=== PATIENT | male | born 1940 | race Caucasian/White ===

== ENCOUNTER 2021-04-29 18:36 | Emergency (ER) | payer OTHER, MEDICARE ==
--- OUTSIDE RECORDS SUMMARY | 2021-04-29 18:39 | XMS REPORT | Continuity of Care Document ---
:1940 Author Organization [facility] t Address [address] [place] [address] Care Team Providers Name Role Phone Gardenia Attending Clinician Unavailable Raslan Admitting Clinician Unavailable Physician, Primary or Family Admitting Clinician Unavailabl e Payers Payer Name Policy Type Policy Number Effective Date Expiration Date S ource Problems This patient has no known problems. Allergies, Adverse Reactions, Alerts Allergy Allergy Status Severity Reaction(s) Onset Inactive Treating Comm ents Source Name Type Date Date Clinician [place] DA Active [place] [facility] ins 04-09 Clear 00:00: [address] [place] [address] Medications This patient has no known medications. Procedures This patient has no known procedures. Encounters Start End Encounter Admission Attending Care Care Encounter Source Date/Time Date/Time Type Type Clinicians Facility Department ID 2021-04-14 2021-04-14 Inpatient RODERICK Melara INTE.02 [id number] [facility] 14:04:00 19:30:00 Zaheer [id number] [facility] 2021-04-09 2021-04-09 Outpatient EFRAIN MelaraBETI 3DAY [id number] [facility] 09:00:00 23:00:00 Zaheer [id number] [facility] Results Test Description Test Time Test Comments Results Result [facility] e Comments - CT ABD PELVIS 2021-04-15 W/CONT 08:34:00 [facility] [place]: TYREE LUJAN : 1940 Sex: M Name: TYREE LUJAN [facility] Tully : 1940 Age/S: 80 / M [address] [place] [address] Blvd Unit #: [id number] Loc: [place] [address] Phys: Luke Ayala [employer] Acct: [id number] Dis Date: 04/14/2021 Status: DIS IN PHONE #: [phone] Exam Date: 04/14/2021 165 FAX #: [phone] Reason: PRE WATCHMAN ACCESS EVALUATION EXAMS: CPT CODE: [id number] CT ABD PELVIS W/CONT 43224 EXAM: CT ABDOMEN AND PELVIS WITH CONTRAST CHEST CT ANGIOGRAM WITH IV CONTRAST (PULMONARY VEIN MAPPING) DATE: 04/14/2021 2:42 PM : 1940; Age: 80 years y/o Male INDICATION: A. Fib, PRE WATCHMAN EVALUATION COMPARISON: None. TECHNIQUE: Volumetric CT of the abdomen and pelvis is acquired following the intravenous administration of contrast. Axial, coronal and sagittal images are provided. IV contrast: 100 mL Isovue Enteric contrast: None. DLP: 3673 mGy-cm CT imaging performed at this location utilizes radiation dose optimization techniques which include one or more of the following: -Automated exposure control -Adjustment of the mA and/or kV according to patient size -Use of iterative reconstruction technique Technique: Contiguous 0.5 mm axial images of the chest were obtained with IV contrast using the CT angiogram protocol with a 64-slice multidetector scanner. Images were obtained from the thoracic inlet through below the level of the adrenal glands. Particular attention was given to the left atrium and pulmonary veins. The acquired data was used to create multiplanar reformats and 3D volume rendering reconstructions with the use of the work station as per CT Angiogram protocol. Pulmonary vein measurements (measurement plane obtained 5 mm distal to vessel ostia): FINDINGS: Right superior pulmonary vein (RSPV): 21 mm. Right inferior pulmonary vein (RIPV): 14 mm. Left superior pulmonary vein (LSPV): 19 mm. Left inferior pulmonary vein (LIPV): 12 mm. Lower thorax: 2 cm noncalcified opacity is noted along the lateral right major fissure. Mild pulmonary emphysema with dependent atelectatic changes. Scattered bilateral calcified pleural plaques is PAGE 1 Signed Report (CONTINUED) Name: TYREE LUJAN [facility] : 1940 Age/S: 80 / M [address] [place] [address] Blvd Unit #: [id number] Loc: [place] [address] Phys: Luke Ayala [employer]IT[employer] Acct: [id number] Dis Date: 04/14/2021 Status: DIS IN PHONE #: [phone] Exam Date: 04/14/2021 1659 FAX #: [phone] Reason: PRE WATCHMAN ACCESS EVALUATION EXAMS: CPT CODE: [id number] CT ABD PELVIS W/CONT 31200 <Continued> seen, which may represent prior asbestos exposure. Trace bilateral pleural effusions. Elevated left hemidiaphragm is seen. Heart is borderline in size. Trace pericardial effusion. Mild coronary arteries calcification. Tortuous thoracic aorta is noted. Liver, gallbladder, adrenal glands, kidneys, spleen and pancreas: Prior cholecystectomy clips. Few simple cysts in the liver measuring up to 4.5 cm. Exophytic 3.1 cm lesion is noted involving the posterior right kidney lower pole. No hydronephrosis. Adrenal glands are not well seen. Multiple clips are noted around the GE junction causing streak artifacts, limiting evaluation of the pancreas. Spleen is grossly unremarkable. Visualized Gastrointestinal tract: Stomach is collapsed limiting its evaluation. No bowel obstruction. Mild to moderate sigmoid colonic diverticulosis. Small right inguinal hernia containing small bowel loop is seen without obstruction. Elevated left hemidiaphragm is seen with jejunal loops extending into the thorax through posterior diaphragmatic hernia. Peritoneum, mesentery, retroperitoneum and soft tissues: Atherosclerotic changes are seen involving the aorta. Borderline prostatomegaly. Bladder is not well distended limiting its evaluation. No lymphadenopathy. Bones: Left hip arthroplasty with streak artifacts is seen. Moderate right hip degenerative changes. Severe S-shaped scoliotic curvature of the thoracal lumbar spine. Spine degenerative changes. IMPRESSION: 1. Pulmonary venous measurements as above. 2. No acute intra-abdominal process. 3. 3.1 cm low-attenuation lesion in the posterior right kidney lower pole. This may represent complex or complicated cyst however ultrasound follow-up is recommended to ensure benign cystic nature and exclude other pathology. 4. Borderline cardiomegaly with coronary artery disease and trace bilateral pleural effusions. 5. Severe scoliotic deformity with left diaphragmatic hernia. Other nonemergent findings as above. 6. 2 cm noncalcified opacity is noted along the lateral right major fissure. This may represent scarring however underlying lung lesion PAGE 2 Signed Report (CONTINUED) Name: TYREE LUJAN [facility] : 1940 Age/S: 80 / M [address] [place] [address] Unit #: [id number] Loc: [place] [address] Phys: Luke Ayala Acct: [id number] Dis Date: 04/14/2021 Status: DIS IN PHONE #: [phone] Exam Date: 04/14/2021 1659 FAX #: [phone] Reason: PRE WATCHMAN ACCESS EVALUATION EXAMS: CPT CODE: [id number] CT ABD PELVIS W/CONT 81465 <Continued> cannot be entirely excluded. 3 months follow-up chest CT without contrast is recommended as per guidelines. FOR INTERNAL CODING PURPOSES ONLY RESULT CODE: NOD at 0834 Reported and signed by: Jesse Crespo D.O. CC: Luke Varner MD Technologist:Clay Ann RT(R)(CT) CTDI: DLP: Trnscb Date/Time: 04/15/2021 (0834) [email or web address] Orig Print D/T: S: 04/15/2021 (0838) PAGE 3 Signed Report - CT HEART W CN 2021-04-15 [facility] 08:34:00 [facility] REJI LOPEZName: TYREE LUJAN : 1940 Sex: M Name: TYREE LUJAN [facility] Tully : 1940 Age/S: 80 / M [address] [place] [address] Unit #: [id number] Loc: [place] [address] Phys: DannfransiscoLuke quevedo [facility] Acct: [id number] Dis Date: 04/14/2021 Status: DIS IN PHONE #: [phone] Exam Date: 04/14/2021 1700 FAX #: [phone] Reason: PRE WATCHMAN EVALUATION EXAMS: CPT CODE: [id number] CT HEART W CN [facility] [address] EXAM: CT ABDOMEN AND PELVIS WITH CONTRAST CHEST CT ANGIOGRAM WITH IV CONTRAST (PULMONARY VEIN MAPPING) DATE: 04/14/2021 2:42 PM : 1940; Age: 80 years y/o Male INDICATION: A. Fib, PRE WATCHMAN EVALUATION COMPARISON: None. TECHNIQUE: Volumetric CT of the abdomen and pelvis is acquired following the intravenous administration of contrast. Axial, coronal and sagittal images are provided. IV contrast: 100 mL Isovue Enteric contrast: None. DLP: 3673 mGy-cm CT imaging performed at this location utilizes radiation dose optimization techniques which include one or more of the following: -Automated exposure control -Adjustment of the mA and/or kV according to patient size -Use of iterative reconstruction technique Technique: Contiguous 0.5 mm axial images of the chest were obtained with IV contrast using the CT angiogram protocol with a 64-slice multidetector scanner. Images were obtained from the thoracic inlet through below the level of the adrenal glands. Particular attention was given to the left atrium and pulmonary veins. The acquired data was used to create multiplanar reformats and 3D volume rendering reconstructions with the use of the work station as per CT Angiogram protocol. Pulmonary vein measurements (measurement plane obtained 5 mm distal to vessel ostia): FINDINGS: Right superior pulmonary vein (RSPV): 21 mm. Right inferior pulmonary vein (RIPV): 14 mm. Left superior pulmonary vein (LSPV): 19 mm. Left inferior pulmonary vein (LIPV): 12 mm. Lower thorax: 2 cm noncalcified opacity is noted along the lateral right major fissure. Mild pulmonary emphysema with dependent atelectatic changes. Scattered bilateral calcified pleural plaques is PAGE 1 Signed Report (CONTINUED) Name: TYREE LUJAN [facility] : 1940 Age/S: 80 / M [address] [place], [place] [address]vd Unit #: [id number] Loc: [place] [address] Phys: DannfransiscoemyHarjittobias [employer]IT[employer]ER Acct: [id number] Dis Date: 04/14/2021 Status: DIS IN PHONE #: [phone] Exam Date: 04/14/2021 1700 FAX #: [phone] Reason: PRE WATCHMAN EVALUATION EXAMS: CPT CODE: [id number] CT HEART W CN [facility] [address] <Continued> seen, which may represent prior asbestos exposure. Trace bilateral pleural effusions. Elevated left hemidiaphragm is seen. Heart is borderline in size. Trace pericardial effusion. Mild coronary arteries calcification. Tortuous thoracic aorta is noted. Liver, gallbladder, adrenal glands, kidneys, spleen and pancreas: Prior cholecystectomy clips. Few simple cysts in the liver measuring up to 4.5 cm. Exophytic 3.1 cm lesion is noted involving the posterior right kidney lower pole. No hydronephrosis. Adrenal glands are not well seen. Multiple clips are noted around the GE junction causing streak artifacts, limiting evaluation of the pancreas. Spleen is grossly unremarkable. Visualized Gastrointestinal tract: Stomach is collapsed limiting its evaluation. No bowel obstruction. Mild to moderate sigmoid colonic diverticulosis. Small right inguinal hernia containing small bowel loop is seen without obstruction. Elevated left hemidiaphragm is seen with jejunal loops extending into the thorax through posterior diaphragmatic hernia. Peritoneum, mesentery, retroperitoneum and soft tissues: Atherosclerotic changes are seen involving the aorta. Borderline prostatomegaly. Bladder is not well distended limiting its evaluation. No lymphadenopathy. Bones: Left hip arthroplasty with streak artifacts is seen. Moderate right hip degenerative changes. Severe S-shaped scoliotic curvature of the thoracal lumbar spine. Spine degenerative changes. IMPRESSION: 1. Pulmonary venous measurements as above. 2. No acute intra-abdominal process. 3. 3.1 cm low-attenuation lesion in the posterior right kidney lower pole. This may represent complex or complicated cyst however ultrasound follow-up is recommended to ensure benign cystic nature and exclude other pathology. 4. Borderline cardiomegaly with coronary artery disease and trace bilateral pleural effusions. 5. Severe scoliotic deformity with left diaphragmatic hernia. Other nonemergent findings as above. 6. 2 cm noncalcified opacity is noted along the lateral right major fissure. This may represent scarring however underlying lung lesion PAGE 2 Signed Report (CONTINUED) Name: TYREE LUJAN [facility] : 1940 Age/S: 80 / M [address] [place] [address] Unit #: [id number] Loc: [place] [address] Phys: Luke Ayala Acct: [id number] Dis Date: 04/14/2021 Status: DIS IN PHONE #: [phone] Exam Date: 04/14/2021 1700 FAX #: [phone] Reason: PRE WATCHMAN EVALUATION EXAMS: CPT CODE: [id number] CT HEART W CN [facility] [address] <Continued> cannot be entirely excluded. 3 months follow-up chest CT without contrast is recommended as per guidelines. FOR INTERNAL CODING PURPOSES ONLY RESULT CODE: NOD at 0834 Reported and signed by: Jesse Crespo D.O. CC: Luke Varner MD Technologist:Clay Ann, RT(R)(CT) CTDI: DLP: Trnscb Date/Time: 04/15/2021 (0834) [email or web address] Orig Print D/T: S: 04/15/2021 (5673) PAGE 3 Signed Report Novel Coronavirus 2019 Inhouse 2021-04-10 06:58:00 Test Item Value Reference Range Interpretation Comme nts Novel Coronavirus 2018 Negative Negative Posit nela results are indicative of the Inhouse (test code = presenc e [id number] RNA, clinical COVNONPUI) correlation wit h patient historyand other diagnosti c information is necessary to de terminepatient infection status. Positiv e results do not rule outbacterial in fection or co-infection with other viru ses. Negative results do not preclude SA RS-CoV-2 infection andshould not b e used as the sole basis for patient man agementdecisions. Negative result s must be combined with otherclinical o bservations, patient history, and ep idemiologicalinformation. Detection of SA RS-CoV-2 RNA may be affected bysamp le collection methods, storage conditi ons, and/or stageof infection. Lakisha l RNA mutations, vaccinations, a ntiviraltherapeutics, antibiotics, ch emotherapeutic orimmunosuppres elizabeth drugs have not been evaluated for e ffectson detection. Results are for the identification of SARS-CoV-2 RNA usingthe Taylor M2000 System under th e FDA Emergency UseAuthorizatio n. The testing is performed by david lirained in the procedures for the Kuaidi Dache M2000 moleculardiagno stic SARS-CoV-2 assay in vitro. PROTHROMBIN [id number] 12:59:00 Test Item Value Reference Range Interpretation Comments PROTHROMBIN TIME 15.2 SECONDS 9.3-12.9 H PATIENT (test code = PTP) INTERNATIONAL NORMAL 1.4 0.8-1.2 H TARGET RATIO (test code = INR BY IN DICATION INR) Indication INR1. Prophyl axis of venous thrombos is 2.0 - 3. 0 (orthopedic natalie gregorio), Prophylaxis of venous thrombos is (other than hig h-risk surgery), Keiry tment of Deep Vein Thrombosis/Pulm onary Embolism, Preve ntion of systemic emb olism - Tissue heart va lves, Acute Myocardia l Infarction (to prevent systemic embo lism), Valvular heart disease, Atri al Fibrillation, Bileaflet mecha nical valve in aortic position.2. Mec hanical prosthetic valv es (high risk), 2.5 - 3.5 Presence of Lupus Anticoagu lant or Antiphospholi pid Antibodies, Pre vention of systemic e mbolism - Acute Myocard ial Infarction (t o prevent recurre nt infarct). BASIC METABOLIC [id number] 12:56:00 Test Item Value Reference Range Interpretation Comments SODIUM (test code = NA) 141 mEq/L 134-147 N POTASSIUM (test code = 4.4 mEq/L 3.4-5.0 N K) CHLORIDE (test code = 107 mEq/L 100-108 N CL) CARBON DIOXIDE (test 32 mEq/l 21-33 N code = CO2) ANION GAP (test code = 6 0-20 N GAP) GLUCOSE (test code = 93 mg/dL 70-110 N GLU) BLOOD UREA NITROGEN 16 mg/dL 7-18 N (test code = BUN) GLOMERULAR FILTRATION 72.1 70-80 N Units of measure = RATE (test code = GFR) ml/mi n/1.73 m2 CREATININE (test code = 1.0 mg/dL 0.6-1.3 N CREAT) CALCIUM (test code = 8.8 mg/dL 8.0-10.5 N CA) [id number] 12:56:00 Test Item Value Reference Range Interpretation Comments PREALBUMIN (test code = PREALB) 21.1 mg/dL 16.0-40.0 N - XR CHEST 2 [id number] 12:49:00 [facility] 1940 Sex: M FAX: Zaheer Mcdermott MD [phone] [place]: [address]: PRE Name: TYREE LUJAN [facility] Tully : 1940 Age/S: 80/M [address] [place] [address] Blvd Unit #: [id number] Loc: [place] [address] Phys: Zaheer Varner MD Acct: [id number] Dis Date: Status: PRE SDC PHONE #: [phone] Exam Date: 04/09/2021 1154 FAX #: [phone] Reason: PREOP EXAMS: CPT CODE: [id number] XR CHEST 2 V 67234 EXAM: PA and lateral chest. EXAM DATE: April 09, 2021 CLINICAL HISTORY: PREOP COMPARISON: None The exam is limited by the marked kyphoscoliosis area Assessment of the heart is di fficult secondary to the marked kyphoscoliosis. It appears within normal limits. The right lung demonstrates surgical sutures in the upper lateral lung. No other significant findingis noted on the right. In the left lower to mid lung there is vague opacity. No pleural effusions are identified. Surgical clips are noted in the mid lower chest and upper abdomen region. Elevation of the left hemidiaphragm is noted. IMPRESSION: MarkedS-shaped kyphoscoliosis. Vague opacity left lower lung. With no comparison images it is difficult to determine if this may be nonacute. Early infectious/inflammatory changes cannot be excluded. at 1248 Reported and signed by: Janeth Tavares M.D. CC: Zaheer Varner MD Technologist: RT Isabela(Juarez)(Vivek) Trnscrd Date/Time/By: 04/09/2021 (7663) : By: Jenni Orig Print D/T: S: 04/09/2021 (2181) PAGE 1 Signed ReportCBC W/AUTO [id number] 12:37:00 Test Item Value Reference Range Interpretation Comments WHITE BLOOD CELL (test code = 7.9 x10 3/uL 4.5-11.0 N WBC) RED BLOOD CELL (test code = 4.53 x10 6/uL 4.00-5.60 N RBC) HEMOGLOBIN (test code = HGB) 13.8 g/dL 12.5-16.9 N HEMATOCRIT (test code = HCT) 43.6 % 37.5-50.7 N MEAN CELL VOLUME (test code = 96.2 fL 81.0-99.0 N MCV) MEAN CELL HGB (test code = MCH) 30.5 pg 27.0-33.0 N MEAN CELL HGB CONCETRATION 31.7 g/dL 33.0-37.0 L (test code = MCHC) RED CELL DISTRIBUTION WIDTH CV 14.6 % 11.5-14.5 H (test code = RDW) RED CELL DISTRIBUTION WIDTH SD 51.3 fL 37.0-54.0 N (test code = RDW-SD) PLATELET COUNT (test code = 207 x10 3/uL 150-400 N PLT) MEAN PLATELET VOLUME (test code 8.1 fL 7.0-9.0 N = MPV) NEUTROPHIL % (test code = NT%) 74.2 % 56.0-77.0 N IMMATURE GRANULOCYTE % (test 0.6 % 0.0-2.0 N code = IG%) LYMPHOCYTE % (test code = LY%) 15.4 % 14.0-32.0 N MONOCYTE % (test code = MO%) 8.6 % 4.8-9.0 N EOSINOPHIL % (test code = EO%) 0.8 % 0.3-3.7 N BASOPHIL % (test code = BA%) 0.4 % 0.0-2.0 N NUCLEATED RBC % (test code = 0.0 % 0-0 N NRBC%) NEUTROPHIL # (test code = NT#) 5.90 x10 3/uL 2.0-7.6 N IMMATURE GRANULOCYTE # (test 0.05 x10 3/uL 0.00-0.03 H code = IG#) LYMPHOCYTE # (test code = LY#) 1.22 x10 3/uL 1.0-3.8 N MONOCYTE # (test code = MO#) 0.68 x10 3/uL 0.1-0.8 N EOSINOPHIL # (test code = EO#) 0.06 x10 3/uL 0.0-0.2 N BASOPHIL # (test code = BA#) 0.03 x10 3/uL 0.0-0.2 N NUCLEATED RBC # (test code = 0.00 x10 3/uL 0.0-0.1 N NRBC#) MANUAL DIFF REQUIRED (test code NO = MDIFF)
[2021-04-29 20:12] LABS: Absolute Lymphocytes (CBC) 1.2 K/uL (0.7-4.9); Basophils % 0.3 % (0-1.3); Hematocrit 40.3 % (39.6-49.0); Lymphocytes % 16.2 % (15.3-44.8); MPV 6.4 fL (7.6-11.3); RBC Red Blood Cell Count 4.37 M/uL (4.33-5.43)
[2021-04-29 20:21] LABS: Protime INR 1.08
[2021-04-29 20:38] LABS: ALT/SGPT 25 U/L (12-78); AST/SGOT 16 U/L (15-37); Albumin 3.5 g/dL (3.4-5.0); Alkaline Phosphatase 74 U/L (45-117); BUN Blood Urea Nitrogen 21 mg/dL (7-18); Bicarbonate 30 mmol/L (21-32); Bilirubin Direct 0.2 mg/dL (0-0.2); Bilirubin Total 0.6 mg/dL (0.2-1.0); Glucose Level 119 mg/dL (74-106); Magnesium 2.6 mg/dL (1.8-2.4); NT PRO-BNP 919 pg/mL (<450); Protein, Total 6.8 g/dL (6.4-8.2); Sodium Level 140 mmol/L (136-145); Troponin (Emerg Dept Use Only) < 0.02 ng/mL (0.0-0.045)
--- NOTE | 2021-04-29 20:57 | RAD REPORT ---
EXAM DESCRIPTION: RAD - Chest Single View - 04/29/2021 8:15 pm CLINICAL HISTORY: COUGH Chest pain. COMPARISON: CHEST PA AND LAT 2 VIEW dated 12/10/2015; CHEST PA AND LAT 2 VIEW dated 02/02/2015; CHEST PA AND LAT 2 VIEW dated 01/22/2015; CHEST PA AND LAT 2 VIEW dated 02/20/2006 FINDINGS: Portable technique limits examination quality. Mild interstitial pulmonary edema seen. Small left pleural effusion is present. The heart is moderate ly enlarged. Calcified pleural plaque is present. IMPRESSION: Mild CHF.
--- NOTE | 2021-04-29 20:59 | RAD REPORT ---
EXAM DESCRIPTION: US - Lower Extremity Artery Uni Ltd - 04/29/2021 8:13 pm CLINICAL HISTORY: PAIN Leg pain, claudication COMPARISON: No comparisons FINDINGS: Left lower extremity arterial system demonstrates triphasic waveforms. No significant sten osis or occlusion evident. IMPRESSION: Negative study.
--- NOTE | 2021-04-29 21:08 | EDPHYS ---
Physician Documentation [facility] Name: Heri Hickey Age: 80 yrs Sex: Male : 1940 Arrival Date: 04/29/2021 Time: 18:37 Bed 4 Private MD: ED Physician Jonathan Holm HPI: 04/29 19:46 This 80 yrs old Male presents to ER via Wheelchair with complaints of [facility] Incisional Drainage. 19:46 The patient or guardian reports decreased range of motion, swelling. that occurred at [facility], [facility] 04/14/21, [place]. 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 - Social history:: Smoking status: . - Family history:: not pertinent. ROS: 19:46 Constitutional: Negative for fever, chills, and weight loss, Eyes: Negative for injury, milagros pain, redness, and discharge, ENT: Negative for injury, pain, and discharge, Neck: Negative for injury, pain, and swelling, Cardiovascular: Negative for chest pain, palpitations, and edema, Respiratory: Negative for shortness of breath, cough, wheezing, and pleuritic chest pain, Abdomen/GI: Negative for abdominal pain, nausea, vomiting, diarrhea, and constipation, Back: Negative for injury and pain, : Negative for injury, bleeding, discharge, and swelling, Skin: Negative for injury, rash, and discoloration, Neuro: Negative for headache, weakness, numbness, tingling, and seizure, Psych: Negative for depression, anxiety, suicide ideation, homicidal ideation, and hallucinations, Allergy/Immunology: Negative for hives, rash, and allergies, Endocrine: Negative for neck swelling, polydipsia, polyuria, polyphagia, and marked weight changes, Hematologic/Lymphatic: Negative for swollen nodes, abnormal bleeding, and unusual bruising. 19:46 MS/extremity: Positive for decreased range of motion, pain, swelling, tenderness, of the left upper thigh. Exam: 19:46 Constitutional: This is a well developed, well nourished patient who is awake, alert, milagros and in no acute distress. Head/Face: Normocephalic, atraumatic. Eyes: Pupils equal round and reactive to light, extra-ocular motions intact. Lids and lashes normal. Conjunctiva and sclera are non-icteric and not injected. Cornea within normal limits. Periorbital areas with no swelling, redness, or edema. ENT: Nares patent. No nasal discharge, no septal abnormalities noted. Tympanic membranes are normal and external auditory canals are clear. Oropharynx with no redness, swelling, or masses, exudates, or evidence of obstruction, uvula midline. Mucous membranes moist. Neck: Trachea midline, no thyromegaly or masses palpated, and no cervical lymphadenopathy. Supple, full range of motion without nuchal rigidity, or vertebral point tenderness. No Meningismus. Chest/axilla: Normal chest wall appearance and motion. Nontender with no deformity. No lesions are appreciated. Cardiovascular: Regular rate and rhythm with a normal S1 and S2. No gallops, murmurs, or rubs. Normal PMI, no JVD. No pulse deficits. Respiratory: Lungs have equal breath sounds bilaterally, clear to auscultation and percussion. No rales, rhonchi or wheezes noted. No increased work of breathing, no retractions or nasal flaring. Abdomen/GI: Soft, non-tender, with normal bowel sounds. No distension or tympany. No guarding or rebound. No evidence of tenderness throughout. Back: No spinal tenderness. No costovertebral tenderness. Full range of motion. Male : Normal genitalia with no discharge or lesions. Skin: Warm, dry with normal turgor. Normal color with no rashes, no lesions, and no evidence of cellulitis. Neuro: Awake and alert, GCS 15, oriented to person, place, time, and situation. Cranial nerves II-XII grossly intact. Motor strength 5/5 in all extremities. Sensory grossly intact. Cerebellar exam normal. Normal gait. Psych: Awake, alert, with orientation to person, place and time. Behavior, mood, and affect are within normal limits. 19:46 Musculoskeletal/extremity: Extremities: decreased ROM, ROM: intact in all extremities, full active range of motion, full passive range of motion, Circulation is intact in all extremities. Sensation intact. Compartment Syndrome exam of affected extremity: is normal. DVT Exam: negative Homans' sign noted on exam, no appreciated bluish discoloration, no erythema, no increased warmth, pain, swelling, tenderness. Vital Signs: 18:47 BP 136 / 89; Pulse 56; Resp 17; Temp 99(TE); Pulse Ox 99% on R/A; Weight 84.37 kg; tw2 Height 5 ft. 10 in. (177.80 cm); Pain 6/10; 20:00 BP 126 / 89; Pulse 55; Resp 17; Pulse Ox 97% ; rr5 21:00 BP 131 / 89; Pulse 57; Resp 17; Pulse Ox 97% ; rr5 21:42 BP 137 / 75; Pulse 60; Resp 16; Pulse Ox 98% ; rr5 18:47 Body Mass Index 26.69 (84.37 kg, 177.80 cm) tw2 MDM: 19:18 Patient medically screened. [facility] 19:56 Differential diagnosis: contusion, strain. Data reviewed: vital signs, nurses notes, [facility] lab test result(s), EKG, radiologic studies, doppler, plain films. Data interpreted: ekg monitor tech: rate is 56 beats/min, rhythm is atrial fibrillation. Test interpretation: by ED physician or midlevel provider: ECG, plain radiologic studies. 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 04/29 19:36 Order name: Basic Metabolic Panel; Complete Time: 20:47 [facility] 04/29 19:36 Order name: CBC with Diff; Complete Time: 20:25 [facility] 04/29 19:36 Order name: LFT's; Complete Time: 20:47 [facility] 04/29 19:36 Order name: Magnesium; Complete Time: 20:47 [facility] 04/29 19:36 Order name: NT PRO-BNP; Complete Time: 20:47 [facility] 04/29 19:36 Order name: PT-INR; Complete Time: 20:47 [facility] 04/29 19:36 Order name: Troponin (emerg Dept Use Only); Complete Time: 20:47 [facility] 04/29 19:36 Order name: XRAY Chest (1 view); Complete Time: 21:06 [facility] 04/29 19:36 Order name: EKG; Complete Time: 19:37 [facility] 04/29 19:36 Order name: Cardiac monitoring; Complete Time: 20:15 [facility] 04/29 19:36 Order name: EKG - Nurse/Tech; Complete Time: 20:15 [facility] 04/29 19:36 Order name: IV Saline Lock; Complete Time: 20:15 [facility] 04/29 19:36 Order name: Lower Extremity Artery Uni Ltd; Complete Time: 21:06 [facility] 04/29 19:36 Order name: Labs collected and sent; Complete Time: 20:15 [facility] 04/29 19:36 Order name: O2 Per Protocol; Complete Time: 20:15 [facility] 04/29 19:36 Order name: O2 Sat Monitoring; Complete Time: 20:15 [facility] Administered Medications: 21:10 Drug: Lasix (furosemide) 20 mg Route: IVP; Site: left forearm; rr5 21:43 Follow up: Response: No adverse reaction rr5 Disposition: 04/29/21 21:07 Discharged to Home. Impression: Atrial fibrillation and flutter, Postprocedural hemorrhage and hematoma of a circulatory system organ or structure following a cardiac catheterization - seroma, Unspecified combined systolic (congestive) and diastolic (congestive) heart failure, Pleural effusion in conditions classified elsewhere - small left. - Condition is Stable. - Discharge Instructions: Atrial Fibrillation, Heart Failure, Hematoma, Hematoma, [id number], Pleural Effusion, Heart Failure, [id number], Atrial Fibrillation, [id number], Seroma. - Medication Reconciliation Form, Thank You Letter, Antibiotic Education, Prescription Opioid Use form. - Follow up: Private Physician; When: 2 - 3 days; Reason: Recheck today's complaints, Continuance of care, Re-evaluation by your physician. Follow up: Zaheer Varner; When: 2 - 3 days; Reason: Recheck today's complaints, Continuance of care, Re-evaluation by your physician. - Problem is new. - Symptoms have improved. Signatures: Dispatcher [employer] EDJonathan Be MD MD cha Wise, Tara RN RN tw2 Kit Tim RN RN rr5 Corrections: (The following items were deleted from the chart) 21:07 21:07 04/29/2021 21:07 Discharged to Home. Impression: Atrial fibrillation and flutter; milagros Postprocedural hemorrhage and hematoma of a circulatory system organ or structure following a cardiac catheterization - seroma; Unspecified combined systolic (congestive) and diastolic (congestive) heart failure. Condition is Stable. Discharge Instructions: Hematoma, Hematoma, [id number]-[id number], Seroma. Forms are Medication Reconciliation Form, Thank You Letter, Antibiotic Education, Prescription Opioid Use. Follow up: Private Physician; When: 2 - 3 days; Reason: Recheck today's complaints, Continuance of care, Re-evaluation by your physician. Follow up: Zaheer Varner; When: 2 - 3 days; Reason: Recheck today's complaints, Continuance of care, Re-evaluation by your physician. Problem is new. Symptoms have improved. milagros 21:43 21:07 04/29/2021 21:07 Discharged to Home. Impression: Atrial fibrillation and flutter; rr5 Postprocedural hemorrhage and hematoma of a circulatory system organ or structure following a cardiac catheterization - seroma; Unspecified combined systolic (congestive) and diastolic (congestive) heart failure; Pleural effusion in conditions classified elsewhere - small left. Condition is Stable. Discharge Instructions: Hematoma, Hematoma, [id number], Seroma. Forms are Medication Reconciliation Form, Thank You Letter, Antibiotic Education, Prescription Opioid Use. Follow up: Private Physician; When: 2 - 3 days; Reason: Recheck today's complaints, Continuance of care, Re-evaluation by your physician. Follow up: Zaheer Varner; When: 2 - 3 days; Reason: Recheck today's complaints, Continuance of care, Re-evaluation by your physician. Problem is new. Symptoms have improved. milagros
--- NOTE | 2021-04-29 21:08 | ER ---
Nurse's Notes [facility] Name: Heri Hickey Age: 80 yrs Sex: Male : 1940 Arrival Date: 04/29/2021 Time: 18:37 Bed 4 Private MD: Diagnosis: Atrial fibrillation and flutter;Postprocedural hemorrhage and hematoma of a circulatory system organ or structure following a cardiac catheterization-seroma;Unspecified combined systolic (congestive) and diastolic (congestive) heart failure;Pleural effusion in conditions classified elsewhere-small left Presentation: 04/29 18:47 Chief complaint: Patient states: i had a watchman procedure attempted on this month tw2 by Dr. Varner, and the incision is leaking in my groin area. Coronavirus screen: At this time, the client does not indicate any symptoms associated with coronavirus-19. Ebola Screen: Patient denies travel to an Ebola-affected area in the 21 days before illness onset. Initial Sepsis Screen: Does the patient meet any 2 criteria? No. Patient's initial sepsis screen is negative. Does the patient have a suspected source of infection? No. Patient's initial sepsis screen is negative. Risk Assessment: Do you want to hurt yourself or someone else? Patient reports no desire to harm self or others. Onset of symptoms was April 29, 2021. 18:47 Method Of Arrival: Wheelchair tw2 18:47 Acuity: LASHAE 3 tw2 Triage Assessment: 18:52 General: Appears in no apparent distress. uncomfortable, slender, Behavior is calm, tw2 cooperative, appropriate for age. Pain: Complains of pain in right groin. 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 - Social history:: Smoking status: . - Family history:: not pertinent. Screenin:32 Abuse screen: Denies threats or abuse. Denies injuries from another. Nutritional ak2 screening: No deficits noted. Tuberculosis screening: No symptoms or risk factors identified. Fall Risk None identified. Assessment: 19:30 General: Appears in no apparent distress. uncomfortable, Behavior is calm, cooperative, rr5 appropriate for age. 19:30 Pain: Complains of pain in pelvis and right leg Pain currently is 6 out of 10 on a pain rr5 scale. Neuro: Level of Consciousness is awake, alert, obeys commands, Oriented to person, place, time. Cardiovascular: Capillary refill < 3 seconds Patient's skin is warm and dry. Respiratory: Airway is patent Respiratory effort is even, unlabored, Respiratory pattern is regular, symmetrical. GI: No signs and/or symptoms were reported involving the gastrointestinal system. : No signs and/or symptoms were reported regarding the genitourinary system. EENT: No signs and/or symptoms were reported regarding the EENT system. Derm: Skin is intact, Skin temperature is warm Bruising that is dark purple, on pelvis and right leg. Musculoskeletal: Capillary refill < 3 seconds. 20:11 Reassessment: Patient appears in no apparent distress at this time. Patient is alert, rr5 oriented x 3, equal unlabored respirations, skin warm/dry/pink. ultrasound at bedside. 21:43 Reassessment: Patient appears in no apparent distress at this time. Patient is alert, rr5 oriented x 3, equal unlabored respirations, skin warm/dry/pink. discharge instruction given and explained without complaints made, enroute to lobby positive urine output post lasix. Vital Signs: 18:47 BP 136 / 89; Pulse 56; Resp 17; Temp 99(TE); Pulse Ox 99% on R/A; Weight 84.37 kg; tw2 Height 5 ft. 10 in. (177.80 cm); Pain 6/10; 20:00 BP 126 / 89; Pulse 55; Resp 17; Pulse Ox 97% ; rr5 21:00 BP 131 / 89; Pulse 57; Resp 17; Pulse Ox 97% ; rr5 21:42 BP 137 / 75; Pulse 60; Resp 16; Pulse Ox 98% ; rr5 18:47 Body Mass Index 26.69 (84.37 kg, 177.80 cm) tw2 ED Course: 18:37 Patient arrived in ED. am2 18:49 Triage completed. tw2 18:53 Arm band placed on. tw2 19:18 Jonathan Holm MD is Attending Physician. milagros 19:19 Kieran Morales is Primary Nurse. ak2 19:32 Patient has correct armband on for positive identification. ak2 19:32 No provider procedures requiring assistance completed. ak2 19:52 Missed attempt(s): 20 gauge in right forearm. 22 gauge in right forearm. tt3 20:09 Inserted saline lock: 20 gauge in left forearm, using aseptic technique. Blood rr5 collected. 20:13 US Lower Extremity Artery Uni Ltd In Process Unspecified. EDMS 20:14 XRAY Chest (1 view) In Process Unspecified. EDMS 21:07 Zaheer Varner MD is Referral Physician. milagros 21:42 IV discontinued, intact, bleeding controlled, No redness/swelling at site. Pressure rr5 dressing applied. Administered Medications: 21:10 Drug: Lasix (furosemide) 20 mg Route: IVP; Site: left forearm; rr5 21:43 Follow up: Response: No adverse reaction rr5 Outcome: 21:07 Discharge ordered by . milagros 21:42 Discharged to home via wheelchair, with family. rr5 21:42 Condition: stable 21:42 Discharge instructions given to patient, family, Instructed on discharge instructions, follow up and referral plans. Demonstrated understanding of instructions, follow-up care. 21:43 Patient left the ED. rr5 Signatures: Dispatcher [employer] EDCA Jonathan Holm MD MD cha Wise, Tara RN RN tw2 Talia Wilson am2 Kit Tim RN RN rr5 Alfredo Prather tt3 Kieran Morales ak2
[2021-04-29] MEDS ORDERED: FUROSEMIDE 20 MG/ 2ML VIAL ONE (21:32)
[2021-04-29 22:06] VITALS: BP 137/75; O2SAT 98
[2021-04-29 22:14] VITALS: TEMP 98.2
--- NOTE | 2021-05-01 09:47 | EKG ---
Test Date: 2021-04-29 Test Time: 19:52:32 Travel Registered Nurse Oncology: MEASUREMENT RESULTS: Intervals: Rate: 80 DE: QRSD: 86 QT: 370 QTc: 426 [place]: P: DE: QRS: 59 T: 2 INTERPRETIVE STATEMENTS: Atrial fibrillation Abnormal ECG Compared to ECG 12/26/2012 11:43:52 Sinus bradycardia no longer present Sinus arrhythmia no longer present Electronically Signed On 05-01-21 09:43:56 CDT by Collins Lynch
== END 2021-04-29 21:43 | disposition home or self-care (01) ==
LOC: ER 18:36
DX: I97.610 Postprocedural hemorrhage of a circulatory system organ or structure following a cardiac catheterization (principal); I48.91 Unspecified atrial fibrillation; I48.92 Unspecified atrial flutter; I50.40 Unspecified combined systolic (congestive) and diastolic (congestive) heart failure; J90 Pleural effusion, not elsewhere classified; Z79.01 Long term (current) use of anticoagulants; Z88.0 Allergy status to penicillin
CPT/HCPCS: 93005; 85025; 80048; 36415; 83735; 85610; 80076; 84484; 83880; 71045; 93926; J1940

== ENCOUNTER 2021-08-01 10:18 | Observation (INO) | payer OTHER, MEDICARE ==
[2021-08-01 11:15] LABS: Absolute Lymphocytes (CBC) 1.2 K/uL (0.7-4.9); Basophils % 0.6 % (0-1.3); Hematocrit 39.4 % (39.6-49.0); Lymphocytes % 17.4 % (15.3-44.8); MPV 6.5 fL (7.6-11.3)
[2021-08-01 11:32] LABS: Albumin 3.5 g/dL (3.4-5.0); Bilirubin Direct 0.2 mg/dL (0-0.2); Bilirubin Total 0.6 mg/dL (0.2-1.0); Potassium 3.7 mmol/L (3.5-5.1); Protein, Total 6.9 g/dL (6.4-8.2)
[2021-08-01 11:37] LABS: Magnesium 2.6 mg/dL (1.8-2.4); NT PRO-BNP 1075 pg/mL (<450); Troponin (Emerg Dept Use Only) < 0.02 ng/mL (0.0-0.045)
[2021-08-01] MEDS ORDERED: PANTOPRAZOLE 40 MG INJ ONE (11:42)
[2021-08-01 11:49] LABS: Protime INR 1.42
--- NOTE | 2021-08-01 12:47 | RAD REPORT ---
EXAM DESCRIPTION: [facility]ia Single View08/01/2021 12:24 pm CLINICAL HISTORY: Abdominal pain COMPARISON: 2016 FINDINGS: Scoliosis. Eventration left hemidiaphragm. Postsurgical changes involve the chest. Calcified pleural plaques. Left base is hazy. Right lung appears clear. The heart is normal size IMPRESSION: Left base is hazy probably secondary to a combination of mild pneumonia and small pleura l effusion
[2021-08-01 13:51] LABS: Absolute Lymphocytes (CBC) 1.5 K/uL (0.7-4.9); Basophils % 0.6 % (0-1.3); Hematocrit 36.9 % (39.6-49.0); Lymphocytes % 22.3 % (15.3-44.8); MPV 6.3 fL (7.6-11.3); RBC Red Blood Cell Count 4.01 M/uL (4.33-5.43)
--- NOTE | 2021-08-01 13:51 | RAD REPORT ---
EXAM DESCRIPTION: CT - Abdomen Pelvis W Contrast - 08/01/2021 1:40 pm CLINICAL HISTORY: Abdominal pain COMPARISON: 2017 TECHNIQUE: Computed axial tomography of the abdomen pelvis was obtained. 100 cc Isovue-300 was admin istered intravenously. Oral contrast was not requested which limits evaluation of bowel. All CT scans are performed using dose optimization technique as appropriate and may include automated exposure control or mA/KV adjustment according to patient size. FINDINGS: Scoliosis Eventration of the left hemidiaphragm. Calcified pleural plaques. Hepatic and right renal cysts. Spleen, pancreas, adrenals and left kidney unremarkable The wall of the left colon is mildly to moderately thickened. No evidence of diverticulitis IMPRESSION: Mildly to moderately thickened wall of the left colon probably colitis
--- NOTE | 2021-08-01 14:06 | ER ---
Nurse's Notes [facility] Name: Heri Hickey Age: 81 yrs Sex: Male : 1940 Arrival Date: 08/01/2021 Time: 10:18 Bed 8 Private MD: Anthony Ness Diagnosis: Left sided colitis with rectal bleeding;Abdominal pain, Generalized Presentation: 08/01 10:30 Chief complaint: Patient states: Diarrhea x 3 days ago with abd cramping. Pt denies aa5 vomiting. Reports diarrhea is black and reports he takes anticoagulants for A-fib. Coronavirus screen: diarrhea. Ebola Screen: Patient negative for fever greater than or equal to 101.5 degrees Fahrenheit, and additional compatible Ebola Virus Disease symptoms. Initial Sepsis Screen: Does the patient meet any 2 criteria? No. Patient's initial sepsis screen is negative. Does the patient have a suspected source of infection? No. Patient's initial sepsis screen is negative. Risk Assessment: Do you want to hurt yourself or someone else? Patient reports no desire to harm self or others. Onset of symptoms was July 2021. 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 - Social history:: Smoking status: Patient denies any tobacco usage or history of. Screenin:54 Abuse screen: Denies threats or abuse. Nutritional screening: No deficits noted. es2 Tuberculosis screening: No symptoms or risk factors identified. Fall Risk Ambulatory Aid- Crutches/Cane/Walker (15 pts). Assessment: 10:43 General: Appears slender, well groomed, Behavior is calm, cooperative, appropriate for es2 age. Pain: Complains of pain in mid upper abd. Pain does not radiate. Pain began 2-3 days ago. Neuro: Level of Consciousness is awake, alert, obeys commands, Oriented to person, place, time, situation, Appropriate for age Speech is normal. Cardiovascular: Capillary refill < 3 seconds Patient's skin is warm and dry. Respiratory: Airway is patent Respiratory effort is even, unlabored, Respiratory pattern is regular, symmetrical. GI: Reports upper abdominal pain, diarrhea, Pt reports black liquid diarrhea that started a few days ago. Patient currently denies nausea, vomiting. : No signs and/or symptoms were reported regarding the genitourinary system. EENT: No signs and/or symptoms were reported regarding the EENT system. Derm: Skin is intact, Skin is pink, warm \\T\\ dry. Skin temperature is warm. Musculoskeletal: No signs and/or symptoms reported regarding the musculoskeletal system. 12:01 Reassessment: Patient and/or family updated on plan of care and expected duration. Pain es2 level reassessed. Patient is alert, oriented x 3, equal unlabored respirations, skin warm/dry/pink. 12:01 General: Appears comfortable, Behavior is calm, cooperative, appropriate for age. es2 15:09 Reassessment: Patient and/or family updated on plan of care and expected duration. Pain es2 level reassessed. Patient is alert, oriented x 3, equal unlabored respirations, skin warm/dry/pink. General: Behavior is quiet, Pt sleeping.. 17:06 Reassessment: Pt and in room. requesting update. MD Mihai aware. es2 Reassessment: Patient and/or family updated on plan of care and expected duration. Pain level reassessed. Patient is alert, oriented x 3, equal unlabored respirations, skin warm/dry/pink. General: Behavior is calm, cooperative, appropriate for age, quiet. 18:38 Reassessment: Patient and/or family updated on plan of care and expected duration. Pain es2 level reassessed. Patient is alert, oriented x 3, equal unlabored respirations, skin warm/dry/pink. Family at bedside. General: Appears comfortable, Behavior is calm, cooperative, appropriate for age. Pain: Denies pain. Neuro: Level of Consciousness is awake, alert, obeys commands, Oriented to person, place, time, situation, Appropriate for age Speech is normal. 19:00 Reassessment: Patient appears in no apparent distress at this time. Patient and/or jb4 family updated on plan of care and expected duration. Pain level reassessed. Patient is alert, oriented x 3, equal unlabored respirations, skin warm/dry/pink. 20:00 Reassessment: Patient appears in no apparent distress at this time. Patient and/or jb4 family updated on plan of care and expected duration. Pain level reassessed. Patient is alert, oriented x 3, equal unlabored respirations, skin warm/dry/pink. 21:00 Reassessment: Patient appears in no apparent distress at this time. Patient and/or jb4 family updated on plan of care and expected duration. Pain level reassessed. Patient is alert, oriented x 3, equal unlabored respirations, skin warm/dry/pink. Vital Signs: 10:30 BP 122 / 79; Pulse 80; Resp 16 S; Temp 97.6(TE); Pulse Ox 100% on R/A; Weight 81.65 kg aa5 (R); Height 6 ft. 0 in. (182.88 cm) (R); 10:50 BP 130 / 92; Pulse 50; Resp 17; Pulse Ox 100% ; es2 11:37 BP 117 / 79; Pulse 70; Resp 18; Pulse Ox 100% ; es2 12:08 BP 114 / 81; Pulse 63; Pulse Ox 100% on R/A; es2 12:36 BP 112 / 83; Pulse 62; Resp 14; Pulse Ox 99% on R/A; es2 13:09 BP 127 / 84; Pulse 68; es2 14:13 BP 112 / 82; Pulse 68; Resp 15; Pulse Ox 100% on R/A; es2 15:12 BP 116 / 74; Pulse 75; Resp 13; Pulse Ox 100% on R/A; es2 17:09 BP 105 / 70; Pulse 90; Resp 18; Pulse Ox 100% on R/A; es2 18:41 BP 95 / 66; Pulse 76; Resp 13; Pulse Ox 100% on R/A; es2 20:00 BP 103 / 69; Pulse 71; Resp 14; Pulse Ox 100% on R/A; jb4 21:00 BP 104 / 63; Pulse 73; Resp 14; Pulse Ox 99% on R/A; jb4 10:30 Body Mass Index 24.41 (81.65 kg, 182.88 cm) aa5 ED Course: 10:18 Patient arrived in ED. am2 10:19 Anthony Ness MD is Private Physician. am2 10:30 Arm band placed on. aa5 10:32 Triage completed. aa5 10:33 Jonathan Holm MD is Attending Physician. milagros 10:48 Inserted saline lock: 20 gauge in right forearm, using aseptic technique. ch5 10:56 Patient has correct armband on for positive identification. Bed in low position. Call es2 light in reach. Side rails up X2. 11:07 Jason Valerio RN is Primary Nurse. jd3 11:26 Magnesium Sent. es2 11:26 NT PRO-BNP Sent. es2 11:26 Ptt, Activated Sent. es2 11:26 PT-INR Sent. es2 11:30 Served as a milk bottler during rectal exam. es2 12:24 XRAY Chest (1 view) In Process Unspecified. EDMS 13:40 CT Abd/Pelvis - IV Contrast Only In Process Unspecified. EDMS 13:44 CBC with Diff: 130 pm Sent. es2 14:02 Kit Espino MD is Hospitalizing Provider. [facility] 17:05 COVID-19 : Document "Date of Symptom Onset" if Symptomatic. Sent. es2 21:00 Patient admitted, IV remains in place. jb4 Administered Medications: 11:21 Drug: ProTONIX (pantoprazole) 40 mg Route: IVP; Site: right forearm; es2 14:12 Follow up: Response: No adverse reaction es2 14:09 Drug: Flagyl (metroNIDAZOLE) 500 mg Volume: 100 ml; Route: IVPB; Rate: 200 ml/hr; ch5 Infused Over: 30 mins; Site: right forearm; 16:52 Follow up: Response: No adverse reaction es2 17:14 Follow up: Response: No adverse reaction; IV Status: Completed infusion es2 15:28 Drug: Cipro (ciprofloxacin) 400 mg Volume: 200 ml; Route: IVPB; Infused Over: 60 mins; es2 Site: right forearm; 17:15 Follow up: Response: No adverse reaction; IV Status: Completed infusion es2 Outcome: 14:05 Decision to Hospitalize by Provider. [facility] 21:00 Admitted to Med/surg accompanied by nurse, via wheelchair, room 223, with chart, Report jb4 called to VINCENT Fitch 21:00 Condition: stable 21:00 Discharge instructions given to patient, family, Instructed on the need for admit, Demonstrated understanding of instructions. 22:03 Patient left the ED. jb4 Signatures: Dispatcher [facility] Galvan MD MD cha Calderon, Audri, RN RN aa5 Alok Van RN RN jb4 Talia Wilson Jonathon, RN RN jd3 Lalo Gimenez RN RN ch5 Callie Meraz RN RN es2 Corrections: (The following items were deleted from the chart) 17:11 15:12 BP 116 / 74; Pulse 75bpm; Resp 8bpm; Pulse Ox 100% RA; es2 es2 17:14 15:15 Response: No adverse reaction es2 es2 18:40 18:38 Cardiovascular: es2 es2
--- NOTE | 2021-08-01 14:06 | EDPHYS ---
Physician Documentation [facility] Name: Heri Hickey Age: 81 yrs Sex: Male : 1940 Arrival Date: 08/01/2021 Time: 10:18 Bed 8 Private MD: Anthony Ness ED Physician Jonathan Holm HPI: 08/01 11:12 This 81 yrs old Male presents to ER via Wheelchair with complaints of milagros Diarrhea, Abdominal Pain. 11:12 This 81 yrs old Male presents to ER via Wheelchair with complaints of milagros Diarrhea, Abdominal Pain. 11:12 The patient presents to the emergency department with diarrhea, abdominal pain, of the milagros right upper quadrant, left upper quadrant, right lower quadrant and left lower quadrant. Onset: The symptoms/episode began/occurred this morning. Possible causes: unknown. The symptoms are aggravated by nothing. The symptoms are alleviated by nothing. Associated signs and symptoms: The patient has no apparent associated signs or symptoms. Severity of symptoms: At their worst the symptoms were mild in the emergency department the symptoms are unchanged. The patient has not experienced similar symptoms in the past. 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 - Social history:: Smoking status: Patient denies any tobacco usage or history of. ROS: 11:13 Constitutional: Negative for fever, chills, and weight loss, Eyes: Negative for injury, milagros pain, redness, and discharge, ENT: Negative for injury, pain, and discharge, Neck: Negative for injury, pain, and swelling, Cardiovascular: Negative for chest pain, palpitations, and edema, Respiratory: Negative for shortness of breath, cough, wheezing, and pleuritic chest pain, Back: Negative for injury and pain, : Negative for injury, bleeding, discharge, and swelling, MS/Extremity: Negative for injury and deformity, Skin: Negative for injury, rash, and discoloration, Neuro: Negative for headache, weakness, numbness, tingling, and seizure, Psych: Negative for depression, anxiety, suicide ideation, homicidal ideation, and hallucinations, Allergy/Immunology: Negative for hives, rash, and allergies, Endocrine: Negative for neck swelling, polydipsia, polyuria, polyphagia, and marked weight changes, Hematologic/Lymphatic: Negative for swollen nodes, abnormal bleeding, and unusual bruising. 11:13 Abdomen/GI: Positive for abdominal pain, diarrhea, of the right upper quadrant, left upper quadrant, right lower quadrant and left lower quadrant. Exam: 11:13 Constitutional: This is a well developed, well nourished patient who is awake, alert, milagros and in no acute distress. Head/Face: Normocephalic, atraumatic. Eyes: Pupils equal round and reactive to light, extra-ocular motions intact. Lids and lashes normal. Conjunctiva and sclera are non-icteric and not injected. Cornea within normal limits. Periorbital areas with no swelling, redness, or edema. ENT: Nares patent. No nasal discharge, no septal abnormalities noted. Tympanic membranes are normal and external auditory canals are clear. Oropharynx with no redness, swelling, or masses, exudates, or evidence of obstruction, uvula midline. Mucous membranes moist. Neck: Trachea midline, no thyromegaly or masses palpated, and no cervical lymphadenopathy. Supple, full range of motion without nuchal rigidity, or vertebral point tenderness. No Meningismus. Chest/axilla: Normal chest wall appearance and motion. Nontender with no deformity. No lesions are appreciated. Cardiovascular: Regular rate and rhythm with a normal S1 and S2. No gallops, murmurs, or rubs. Normal PMI, no JVD. No pulse deficits. Respiratory: Lungs have equal breath sounds bilaterally, clear to auscultation and percussion. No rales, rhonchi or wheezes noted. No increased work of breathing, no retractions or nasal flaring. Abdomen/GI: Soft, non-tender, with normal bowel sounds. No distension or tympany. No guarding or rebound. No evidence of tenderness throughout. Back: No spinal tenderness. No costovertebral tenderness. Full range of motion. Male : Normal genitalia with no discharge or lesions. Skin: Warm, dry with normal turgor. Normal color with no rashes, no lesions, and no evidence of cellulitis. MS/ Extremity: Pulses equal, no cyanosis. Neurovascular intact. Full, normal range of motion. Neuro: Awake and alert, GCS 15, oriented to person, place, time, and situation. Cranial nerves II-XII grossly intact. Motor strength 5/5 in all extremities. Sensory grossly intact. Cerebellar exam normal. Normal gait. Psych: Awake, alert, with orientation to person, place and time. Behavior, mood, and affect are within normal limits. 11:13 Abdomen/GI: Inspection: abdomen appears normal, Bowel sounds: normal, Palpation: mild abdominal tenderness, in all quadrants, Rectal exam: Prostate: normal, rectal tone normal, Stool: guaiac negative, hemorrhoid(s), are not appreciated, mass, is not appreciated, swelling, is not appreciated, tenderness, is not appreciated, fecal impaction, is not appreciated, Liver: no appreciated palpable abnormalities, Hernia: not appreciated. Vital Signs: 10:30 BP 122 / 79; Pulse 80; Resp 16 S; Temp 97.6(TE); Pulse Ox 100% on R/A; Weight 81.65 kg aa5 (R); Height 6 ft. 0 in. (182.88 cm) (R); 10:50 BP 130 / 92; Pulse 50; Resp 17; Pulse Ox 100% ; es2 11:37 BP 117 / 79; Pulse 70; Resp 18; Pulse Ox 100% ; es2 12:08 BP 114 / 81; Pulse 63; Pulse Ox 100% on R/A; es2 12:36 BP 112 / 83; Pulse 62; Resp 14; Pulse Ox 99% on R/A; es2 13:09 BP 127 / 84; Pulse 68; es2 14:13 BP 112 / 82; Pulse 68; Resp 15; Pulse Ox 100% on R/A; es2 15:12 BP 116 / 74; Pulse 75; Resp 13; Pulse Ox 100% on R/A; es2 17:09 BP 105 / 70; Pulse 90; Resp 18; Pulse Ox 100% on R/A; es2 18:41 BP 95 / 66; Pulse 76; Resp 13; Pulse Ox 100% on R/A; es2 20:00 BP 103 / 69; Pulse 71; Resp 14; Pulse Ox 100% on R/A; jb4 21:00 BP 104 / 63; Pulse 73; Resp 14; Pulse Ox 99% on R/A; jb4 10:30 Body Mass Index 24.41 (81.65 kg, 182.88 cm) aa5 MDM: 10:33 Patient medically screened. [facility] 11:14 Differential diagnosis: Nonspecific abd pain, gastritis, cholecystitis, pancreatitis, milagros appendicitis, diverticulitis, viral gastroenteritis, gastroenteritis, gastritis, diverticulitis. Data reviewed: vital signs, nurses notes, lab test result(s), EKG, radiologic studies, plain films. Data interpreted: threat monitoring analyst: rate is 50 beats/min, rhythm is normal sinus rhythm, Pulse oximetry: on room air is 50 %. Test interpretation: by ED physician or midlevel provider: ECG, plain radiologic studies. Counseling: I had a detailed discussion with the patient and/or guardian regarding: the historical points, exam findings, and any diagnostic results supporting the discharge/admit diagnosis, lab results, radiology results. 08/01 10:48 Order name: Basic Metabolic Panel; Complete Time: 11:50 ch5 08/01 10:48 Order name: CBC with Diff; Complete Time: 11:50 ch5 08/01 10:48 Order name: Hepatic Function; Complete Time: 11:50 ch5 08/01 10:48 Order name: Lipase; Complete Time: 11:50 ch5 08/01 10:48 Order name: Type And Screen ch5 08/01 10:52 Order name: PT-INR [facility] 08/01 10:52 Order name: Ptt, Activated 5 08/01 10:53 Order name: Protime (+INR); Complete Time: 12:43 [facility] 08/01 10:53 Order name: PTT, Activated Partial Thromb; Complete Time: 12:43 [facility] 08/01 11:12 Order name: Magnesium [facility] 08/01 11:12 Order name: NT PRO-BNP [facility] 08/01 11:12 Order name: Troponin (emerg Dept Use Only); Complete Time: 11:50 [facility] 08/01 11:12 Order name: Magnesium; Complete Time: 11:50 [facility] 08/01 11:12 Order name: NT PRO-BNP; Complete Time: 11:50 [facility] 08/01 13:02 Order name: CBC with Diff: 130 pm [facility] 08/01 13:03 Order name: CBC with Automated Diff; Complete Time: 14:02 [facility] 08/01 15:50 Order name: Fecal Leukocyte Stain [facility] 08/01 15:50 Order name: Ova and Parasites [facility] 08/01 15:50 Order name: Stool Culture [facility] 08/01 15:57 Order name: T4 Free; Complete Time: 18:33 [facility] 08/01 15:57 Order name: Basic Metabolic Panel [facility] 08/01 15:57 Order name: Basic Metabolic Panel [facility] 08/01 15:57 Order name: Thyroid Stimulating Hormone; Complete Time: 18:33 [facility] 08/01 15:57 Order name: CBC with Automated Diff [facility] 08/01 15:57 Order name: CBC with Automated Diff [facility] 08/01 15:58 Order name: Urinalysis [facility] 08/01 16:16 Order name: COVID-19 : Document "Date of Symptom Onset" if Symptomatic. eb 08/01 17:25 Order name: Lipid Profile; Complete Time: 18:33 [facility] 08/01 19:11 Order name: SARS-COV-2 RT PCR [facility] 08/01 21:48 Order name: Hemoglobin A1c [facility] 08/01 10:48 Order name: IV Saline Lock; Complete Time: 10:48 ch5 08/01 10:48 Order name: Labs collected and sent; Complete Time: 10:48 ch5 08/01 11:12 Order name: XRAY Chest (1 view); Complete Time: 14:01 [facility] 08/01 11:12 Order name: EKG; Complete Time: 11:12 [facility] 08/01 11:12 Order name: Cardiac monitoring; Complete Time: 11:26 [facility] 08/01 11:12 Order name: EKG - Nurse/Tech; Complete Time: 11:26 [facility] 08/01 11:12 Order name: O2 Per Protocol; Complete Time: 11:18 [facility] 08/01 11:12 Order name: O2 Sat Monitoring; Complete Time: 11: [facility] 08/01 13:02 Order name: CT Abd/Pelvis - IV Contrast Only; Complete Time: 14:01 [facility] 08/01 15:57 Order name: Clear Liquid [facility] Administered Medications: 11:21 Drug: ProTONIX (pantoprazole) 40 mg Route: IVP; Site: right forearm; es2 14:12 Follow up: Response: No adverse reaction es2 14:09 Drug: Flagyl (metroNIDAZOLE) 500 mg Volume: 100 ml; Route: IVPB; Rate: 200 ml/hr; ch5 Infused Over: 30 mins; Site: right forearm; 16:52 Follow up: Response: No adverse reaction es2 17:14 Follow up: Response: No adverse reaction; IV Status: Completed infusion es2 15:28 Drug: Cipro (ciprofloxacin) 400 mg Volume: 200 ml; Route: IVPB; Infused Over: 60 mins; es2 Site: right forearm; 17:15 Follow up: Response: No adverse reaction; IV Status: Completed infusion es2 Disposition Summary: 08/01/21 14:05 Hospitalization Ordered Hospitalization Status: Observation milagros Provider: Kit Espino cha Location: Telemetry/MedSurg (observation) milagros Condition: Fair milagros Problem: new milagros Symptoms: have improved milagros Bed/Room Type: Standard [facility] Room Assignment: 223(08/01/21 19:54) Diagnosis - Left sided colitis with rectal bleeding milagros - Abdominal pain, Generalized milagros Forms: - Medication Reconciliation Form milagros - SBAR form milagros Signatures: Dispatcher [employer] EDJonathan Be MD MD cha Calderon, Audri, RN RN stephanie5 Rosemary Magaña RN RN cg Heath, Christopher, RN RN ch5 Callie Meraz RN RN es2 Corrections: (The following items were deleted from the chart) 19:54 14:05 milagros cg
[2021-08-01] MEDS ORDERED: CIPROFLOXACIN 400mg IV 400 MG/200 ML BAG IV ONE (14:31)
[2021-08-01] MEDS ORDERED: METRONIDAZOLE 500mg IVPB 500 MG/100 ML BAG IV ONE (14:31)
[2021-08-01] MEDS ORDERED: LABETALOL 20 MG/4ML SYRINGE IV PRN (15:48)
[2021-08-01] MEDS ORDERED: ONDANSETRON 4 MG/2 ML VIAL IV PRN (15:54)
[2021-08-01] MEDS ORDERED: ACETAMINOPHEN 500 MG TAB PO PRN (15:54)
[2021-08-01] MEDS ORDERED: GUAIFENESIN/CODEINE 5ML UCUP PO PRN (16:01)
--- NOTE | 2021-08-01 16:24 | P.HP ---
Certification for Inpatient Patient admitted to: Inpatient With expected LOS: >2 Midnights Patient will require the following post-hospital care: None Practitioner: I am a practitioner with admitting privileges, knowledge of patient current condition, hospital course, and medical plan of care. Services: Services provided to patient in accordance with Admission requirements found in Title 42 Section 412.3 of the Code of Federal Regulations Patient History Date of Service: 08/02/21 Reason for admission: Diarrhea History of Present Illness: Patient is an 81-year-old male with a past medical history significant for atrial fibrillation, chronic pancreatitis, BPH who presents with complaint of diarrhea that has been ongoing for the past 5 days. Patient reported dark stools with every bowel movement and frequency of diarrhea has increased over the past couple of days. Patient reports associated signs and symptoms of fatigue, weakness and lower quadrants abdominal pain. Patient rated pain as 3/10 and described pain as cramping in quality. Patient denies any other signs or symptoms. Symptoms are aggravated or relieved by nothing. Patient decided to present to the hospital for medical evaluation. Allergies Penicillins Allergy (Verified 08/01/21 17:41) Hives/Rash Home medications list reviewed: No - Past Medical/Surgical History Diabetic: No -: BPH -: Chronic Pancreatitis -: Afib Past Surgical History: Patient denies surgical history - Family History Family History: Reviewed- Non-Contributory - Social History Smoking Status: Never smoker Alcohol use: No CD- Drugs: No Place of Residence: Home Review of Systems General: Weakness, As per HPI Eyes: Unremarkable ENT: Unremarkable Respiratory: Unremarkable Cardiovascular: Unremarkable Gastrointestinal: Diarrhea, Melena, As per HPI Genitourinary: Unremarkable Musculoskeletal: Unremarkable Integumentary: Unremarkable Neurological: Unremarkable Lymphatics: Unremarkable Physical Examination - Physical Exam General: Alert, In no apparent distress, Oriented x3 HEENT: Atraumatic, PERRLA, Mucous membr. moist/pink, EOMI, Sclerae nonicteric Neck: Supple, 2+ carotid pulse no bruit, No LAD, Without JVD or thyroid abnormality Respiratory: Clear to auscultation bilaterally, Normal air movement Cardiovascular: Regular rate/rhythm, Normal S1 S2 Capillary refill: <2 Seconds Gastrointestinal: Normal bowel sounds, Soft and benign, No tenderness Musculoskeletal: No clubbing, No tenderness Integumentary: No rashes, No breakdown Neurological: Normal gait, Normal speech, Normal tone, Cranial nerves 3-12 intact, Normal affect Lymphatics: No axilla or inguinal lymphadenopathy External genitalia: Deferred Rectal: Deferred - Studies Laboratory Data (last 24 hrs) 08/01/21 13:41: WBC 6.60, Hgb 12.6 L, Hct 36.9 L, Plt Count 183 08/01/21 10:46: Magnesium 2.6 H 08/01/21 10:46: PT 16.4 H, INR 1.42, APTT 32.7 08/01/21 10:46: WBC 6.60, Hgb 13.3 L, Hct 39.4 L, Plt Count 206 08/01/21 10:46: Sodium 143, Potassium 3.7, BUN 20 H, Creatinine 0.97, Glucose 102, Total Bilirubin 0.6, AST 17, ALT 24, Alkaline Phosphatase 80, Lipase 97 Assessment and Plan - Plan --Colitis. Noted on imaging. Patient placed on antibiotics. --Gastrointestinal bleeding. H&H stable. [employer] consulted. Patient placed on Protonix. We will continue to monitor hemoglobin and transfuse if less than 7.0 --Diarrhea. Stool studies pending to rule out any infectious process. Continue antibiotics. --Chronic pancreatitis. Continue home medications when available. --BPH. Continue home medication when available. --Glaucoma. Continue home medications when available. --BLE edema. BNP elevated. Will get an echo to r\o cardiac cause. Placed on Lasix. Continue supportive care --DVT prophylaxis with SCDs. I have had discussion about advanced directives with the patient during this hospital admission. Addressed code status and goals of care. Spent more than 30 minutes. Case discussed withpatient and nurse. The following document was completed using voice recognition software. This can produce habilitative interventionist errors that can at times significantly distort words and phrases. Please interpret any aspect of the note that is nonsensical in light of this fact. Discharge Plan: Home Plan to discharge in: 48 Hours - Advance Directives Does patient have a Living Will: No Does patient have a Durable POA for Healthcare: No - Code Status/Comfort Care Code Status Assessed: Yes Code Status: Full Code Physician Review: Patient Assessed, Agree with Above Assessment and Plan Critical Care: No
[2021-08-01 16:35] LABS: Thyroid Stimulating Hormone 1.15 uIU/mL (0.360-3.740)
[2021-08-01] MEDS: CIPROFLOXACIN 400mg IV 400 MG/200 ML BAG IV SCH (22:21)
[2021-08-01 22:54] VITALS: BMI 24.4
[2021-08-01 23:34] LABS: Urine Appearance Clear (Clear); Urine Bilirubin Negative (Negative); Urine Blood Negative (Negative); Urine Color Yellow (Yellow); Urine Glucose Negative (Negative); Urine Microscopic Reflex NO UMIC; Urine Protein Negative (Negative); Urine Urobilinogen 0.2 mg/dL (0.2-1.0); Urine pH 5.5 (5.0-7.0)
[2021-08-02] MEDS: METRONIDAZOLE 500mg IVPB 500 MG/100 ML BAG IV SCH ×2 (00:16→08:01)
[2021-08-02] MEDS: HYDROCODONE/APAP 5/325 MG TAB PO PRN ×2 (00:27→14:34)
[2021-08-02] MEDS ORDERED: SODIUM CHLORIDE 0.9% 10ML INJ IV PRN (02:03)
[2021-08-02 04:44] LABS: Absolute Lymphocytes (CBC) 1.2 K/uL (0.7-4.9); Basophils % 0.5 % (0-1.3); Hematocrit 35.5 % (39.6-49.0); Lymphocytes % 24.5 % (15.3-44.8); MPV 6.3 fL (7.6-11.3); RBC Red Blood Cell Count 3.92 M/uL (4.33-5.43)
[2021-08-02 04:55] LABS: Potassium 3.9 mmol/L (3.5-5.1)
[2021-08-02] MEDS ORDERED: POTASSIUM CL SA 10 MEQ TAB PO ONE (09:00)
[2021-08-02] MEDS ORDERED: PANTOPRAZOLE 40 MG INJ IVP SCH (09:00)
[2021-08-02 09:43] VITALS: O2SAT 97
[2021-08-02] MEDS: CIPROFLOXACIN 400mg IV 400 MG/200 ML BAG IV SCH (09:48)
[2021-08-02 10:03] VITALS: TEMP 97.5
[2021-08-02 12:58] VITALS: BP 138/74
[2021-08-02 13:01] LABS: Urine Appearance CLOUDY (Clear); Urine Bilirubin NEGATIVE (Negative); Urine Blood 2+ (Negative); Urine Color YELLOW (Yellow); Urine Glucose NEGATIVE (Negative); Urine Protein NEGATIVE (Negative); Urine Urobilinogen 0.2 mg/dL (0.2-1.0); Urine pH 5.5 (5.0-7.0)
[2021-08-02 13:02] LABS: Urine Microscopic Reflex ORDER UMIC
[2021-08-02 13:11] LABS: Urine Bacteria <20 /HPF (NONE SEEN); Urine Mucus 1+ /HPF (NONE SEEN)
--- NOTE | 2021-08-02 20:52 | P.DS ---
Admission Date: 08/01/21 Discharge Date: 08/02/21 Disposition: ROUTINE DISCHARGE Discharge Condition: GOOD Reason for Admission: Diarrhea, Colitis Procedures: CXR (08/01): FINDINGS: Scoliosis. Eventration left hemidiaphragm. Postsurgical changes involve the chest. Calcified pleural plaques. Left base is hazy. Right lung appears clear. The heart is normal size IMPRESSION: Left base is hazy probably secondary to a combination of mild pneumonia and small pleural effusion ADDENDUM CT scan on the same date demonstrates the haziness of the left base represents a combination of eventration of the left hemidiaphragm and chronic changes within the left lung. No evidence of pneumonia CT Abd/Pelvis (08/01): FINDINGS: Scoliosis Eventration of the left hemidiaphragm. Calcified pleural plaques. Hepatic and right renal cysts. Spleen, pancreas, adrenals and left kidney unremarkable The wall of the left colon is mildly to moderately thickened. No evidence of diverticulitis IMPRESSION: Mildly to moderately thickened wall of the left colon probably colitis Problem List Acute Colitis Dark stool secondary to iron intake Chronic pancreatitis BPH Glaucoma Brief History of Present Illness: 81-year-old male with a past medical history significant for atrial fibrillation, chronic pancreatitis, BPH who presents with complaint of diarrhea that has been ongoing for the past 5 days. Patient reported dark stools with every bowel movement and frequency of diarrhea has increased over the past couple of days. Patient reports associated signs and symptoms of fatigue, weakness and lower quadrants abdominal pain. Patient rated pain as 3/10 and described pain as cramping in quality. Patient denies any other signs or symptoms. Symptoms are aggravated or relieved by nothing. Patient decided to present to the hospital for medical evaluation. Hospital Course: Patient had some improvement in the ED and further improved overnight. He was treated with IV cipro/flagyl. On the following day, he was pain free, tolerating full liquid diet, ambulating, and no longer having diarrhea. Hemoccult was negative per ED physician who performed EMELIA. Hemoglobin remained stable throughout hospitalization. Dark stools were likely due to recent initiation of iron tablets and not a GI bleed. Patient stated he had a normal colonscopy a few months ago. Discharged to complete 2 weeks of antibiotics for colitis. Follow up with PCP in 3-5 days. Follow up with GI in a few weeks. Vital Signs/Physical Exam: Temp Pulse Resp BP Pulse Ox 97.5 F 75 18 138/74 100 08/02/21 12:00 08/02/21 12:00 08/02/21 14:34 08/02/21 12:00 08/02/21 14:34 General: Alert, In no apparent distress, Oriented x3 HEENT: Sclerae nonicteric Neck: Supple Respiratory: Clear to auscultation bilaterally, Normal air movement Cardiovascular: No murmurs, Edema (trace) Gastrointestinal: Soft and benign, Non-distended, No tenderness Musculoskeletal: No tenderness Integumentary: No rashes, No significant lesion Neurological: Normal speech, Normal affect Laboratory Data at Discharge: WBC 4.90 K/uL (4.3-10.9) D 08/02/21 04:00 Hgb 12.4 g/dL (13.6-17.9) L 08/02/21 04:00 Hct 35.5 % (39.6-49.0) L 08/02/21 04:00 Plt Count 192 K/uL (152-406) 08/02/21 04:00 PT 16.4 SECONDS (9.5-12.5) H 08/01/21 10:46 INR 1.42 08/01/21 10:46 APTT 32.7 SECONDS (24.3-36.9) 08/01/21 10:46 Sodium 144 mmol/L (136-145) 08/02/21 04:00 Potassium 3.9 mmol/L (3.5-5.1) 08/02/21 04:00 BUN 14 mg/dL (7-18) 08/02/21 04:00 Creatinine 0.89 mg/dL (0.55-1.3) 08/02/21 04:00 Glucose 90 mg/dL (74-106) 08/02/21 04:00 Phosphorus 2.8 mg/dL (2.5-4.9) 08/02/21 04:00 Magnesium 2.6 mg/dL (1.8-2.4) H 08/01/21 10:46 Total Bilirubin 0.6 mg/dL (0.2-1.0) 08/01/21 10:46 AST 17 U/L (15-37) 08/01/21 10:46 ALT 24 U/L (12-78) 08/01/21 10:46 Alkaline Phosphatase 80 U/L (45-117) 08/01/21 10:46 Triglycerides 102 mg/dL (<150) 08/01/21 16:55 Cholesterol 142 mg/dL (<200) 08/01/21 16:55 HDL Cholesterol 59 mg/dL (40-60) 08/01/21 16:55 Cholesterol/HDL Ratio 2.41 08/01/21 16:55 Lipase 97 U/L (73-393) 08/01/21 10:46 Home Medications: Ciprofloxacin HCl 500 mg PO BID 10 Days #20 tablet 08/02/21 Ferrous Sulfate 1 tab PO DAILY 08/02/21 Memantine HCl 1 tab PO BID 08/02/21 Pantoprazole [Protonix Tab*] 1 tab PO DAILY 08/02/21 Rivaroxaban [Xarelto] 1 tab PO DAILY 08/02/21 Tamsulosin HCl [Flomax] 1 cap PO DAILY 08/02/21 metroNIDAZOLE [Flagyl] 500 mg PO Q8H 10 Days #30 tablet 08/02/21 predniSONE [Deltasone*] 1 tab PO DAILY 08/02/21 New Medications: Ciprofloxacin HCl 500 mg PO BID 10 Days #20 tablet metroNIDAZOLE [Flagyl] 500 mg PO Q8H 10 Days #30 tablet Physician Discharge Instructions: You are found to have left-sided colitis. This is likely the reason for your diarrhea. Your stool was checked and it was negative for blood. The black discoloration of your stool is likely due to your iron. Your hemoglobin remained stable throughout the duration of your hospitalization, making it more unlikely that you were having a GI bleed. He also reported having a recent colonoscopy earlier this year that was normal. You are discharged home with prescriptions for ciprofloxacin and Flagyl, antibiotics that you will need to take for 10 more days. Continue with a liquid/bland diet for the next few days, slowly build back up to more regular diet. Should expect your diarrhea/bowel movements to normalize over the next few days. Follow-up with your PCP in 3-5 days. Recommend rechecking a CBC Discussed with your PCP of following up with your GI doctor and the next few weeks as well. Diet: [place] Activity: Ad leidy Followup: Anthony Ness MD [Primary Care Provider] - Time spent managing pt's care (in minutes): 40
== END 2021-08-02 16:06 | disposition home or self-care (01) ==
LOC: ER 10:18 → ERHOLD 15:45 → 2ND 20:02
PROVIDERS: ADMIT Hospitalist; ATTEND Hospitalist
DX: K52.9 Noninfective gastroenteritis and colitis, unspecified (principal); K86.1 Other chronic pancreatitis; R19.5 Other fecal abnormalities; I48.91 Unspecified atrial fibrillation; H40.9 Unspecified glaucoma; N40.0 Benign prostatic hyperplasia without lower urinary tract symptoms; R60.0 Localized edema; Z79.01 Long term (current) use of anticoagulants; Z88.0 Allergy status to penicillin; Z90.49 Acquired absence of other specified parts of digestive tract; Z20.822 Contact with and (suspected) exposure to COVID-19
CPT/HCPCS: 96365; 93005; 87088; 87045; 85025 ×3; 87086; 80048 ×2; 36415 ×2; 83735; 89055; 87177; 84100; 85610; 80061; 80076; 87046; 85730; 87209; 84443; 83036; 84484; 84439; 83690; 83880; 74177; 71045; 96375; 99285; 96366; U0003; Q9967; C9113 ×2; J0744 ×3; 81003; 81015; G0378